=== PATIENT | male | born 1995 | race Caucasian/White ===

== ENCOUNTER 2017-03-18 00:26 | Emergency (ER) | payer BC ==
[~2017-03-18] VITALS: Ht 177.8 cm; Wt 83.0 kg
[2017-03-18] MEDS ORDERED: MORPHINE SULFATE 4 MG/ML, 1ML IVPush PRN (03:30)
[2017-03-18] MEDS ORDERED: FAMOTIDINE 20 MG/2 ML IVP ONE (03:30)
[2017-03-18] MEDS ORDERED: MAALOX/HYOSCYAMINE/LIDOCAINE 45 ML BTL PO ONE (03:30)
[2017-03-18] MEDS ORDERED: ONDANSETRON 2MG/ML, 2ML IVPush ONE (03:30)
[2017-03-18] MEDS ORDERED: SODIUM CHLORIDE 0.9% 1,000ML IVBOLUS ONE (03:30)
[2017-03-18] MEDS ORDERED: SODIUM CHLORIDE FLUSH 10ML SYR IVF ONE (03:30)
[2017-03-18 03:33] LABS: HEMATOCRIT 50.3 % (39.2-51.8); HEMOGLOBIN 17.1 g/dL (13.7-18.0); WHITE BLOOD COUNT 11.4 x10^3/uL (4.5-13.2)
[2017-03-18 03:46] LABS: ASPARTATE AMINO TRANSFERASE 12 U/L (15-37); BLOOD UREA NITROGEN 13 mg/dL (7-18)
[2017-03-18] MEDS ORDERED: MAALOX/HYOSCYAMINE/LIDOCAINE 45 ML BTL ONE (04:24)
[2017-03-18] MEDS ORDERED: morphine SULFATE 10 MG/ML, 1ML ONE (04:24)
[2017-03-18] MEDS ORDERED: ONDANSETRON 2MG/ML, 2ML ONE (04:24)
[2017-03-18] MEDS ORDERED: FAMOTIDINE 20 MG/2 ML ONE (04:25)
[2017-03-18 05:20] VITALS: BP 137/87
== END 2017-03-18 05:24 | disposition home or self-care (01) ==
LOC: ED 05:20
DX: K21.9 Gastro-esophageal reflux disease without esophagitis (principal)
CPT/HCPCS: 36415; 76700; 80053; 81003; 83690; 85025; 86677; 96361; 96374; 96375; 99285; J2405; J7030; S0028